=== PATIENT | male | born 1995 | race Caucasian/White ===

== ENCOUNTER 2019-10-28 08:49 | Inpatient (IN) ==
[2019-10-28 09:38] LABS: Appearance Urine Cloudy (Clear); Blood Urine 3+ (Negative); Color Urine Red; Glucose Urine UA Negative (Negative); Ketones Urine 2+ (Negative); Leukocyte Esterase Urine Negative (Negative); Nitrite Urine Positive (Negative); Protein Urine 3+ (Negative); Specific Gravity Urine >= 1.030 (1.000-1.030); Urobilinogen Urine Negative (Negative)
[2019-10-28 09:41] LABS: Bilirubin Urine Negative (Negative); Ictotest Urine Negative (Negative)
[2019-10-28 09:47] LABS: RBC Urine >30 /hpf (0-4); WBC Urine >30 /hpf (0-5)
[2019-10-28 09:48] LABS: Bacteria Urine 1+ (Negative); Mucus Urine Present (None Prsent)
[2019-10-28 09:53] LABS: Basophils # (auto) 0.03 K/uL (0-0.2); Basophils % (auto) 0.5 %; Eosinophils # (auto) 0.02 K/uL (0-0.5); Eosinophils % (auto) 0.3 %; Hematocrit (blood only) 44.4 % (42-52); Hemoglobin 15.5 g/dL (14.0-18.0); Immature Granulocytes # (auto) 0.01 K/uL (0.00-0.02); Immature Granulocytes % (auto) 0.2 %; Lymphocytes # (auto) 0.88 K/uL (1.2-3.4); Lymphocytes % (auto) 14.9 %; Mean Corpuscular Hgb Conc 34.9 g/dL (32-36); Mean Corpuscular Volume 85.9 fL (80-100); Monocytes # (auto) 0.51 K/uL (0.11-0.59); Monocytes % (auto) 8.7 %; Neutrophils # (auto) 4.44 K/uL (1.4-6.5); Neutrophils % (auto) 75.4 %; Platelet Count 172 K/uL (130-400); RDW Coefficient of Variation 12.6 % (11.5-14.5); RDW Standard Deviation 39.7 fL (36.4-46.3); Red Blood Count 5.17 M/uL (4.7-6.1); White Blood Count 5.89 K/uL (4.8-10.8)
[2019-10-28] MEDS ORDERED: SODIUM CHLORIDE 0.9% 1000ML 1,000 ML IV ONE (09:55)
[2019-10-28 10:09] LABS: Est GFR (African American) 107.5; Est GFR (Non-African American) 92.7; Potassium 3.7 mmol/L (3.5-5.1)
[2019-10-28 10:10] LABS: Albumin Level 4.6 gm/dl (3.4-5.0); BUN Creatinine Ratio 16.9 (10-20); Calcium 9.7 mg/dl (8.5-10.1); Creatinine Clr Calc Pharmacy 103.5 ml/min
[2019-10-28 10:12] LABS: Albumin Globulin Ratio 1.3 (0.9-2); Globulin 3.6 gm/dl (2.5-4.0); Total Protein 8.2 gm/dl (6.4-8.2)
--- NOTE | 2019-10-28 10:19 | Emergency Department Note ---
History of Present Illness General Chief Complaint: Abdominal Pain Source: patient Mode of arrival: ambulatory Limitations: no limitations History of Present Illness Provider Complaint: abdominal pain and other (hematuria, "I'm constipated and dehydrated") Onset (ago): 1 day(s) Pain Consistency: intermittent Location: diffuse Radiation: bilateral flank ("sometimes") Severity: mild Maximum Pain Intensity: 3 Current Pain Intensity: 3 Quality: + aching and + dull Relieved By: + nothing Exacerbated By: + nothing Associated Symptoms: + nausea, + diarrhea and + constipation Treatments prior to arrival: none This 23-year-old male patient presents emergency department today via ambulance with complaints of "I feel constipated and dehydrated and there is blood in my urine". The patient reports he is also feeling very anxious, but this is chronic and he states "I am not suicidal". The patient states last evening, he was having difficulty sleeping due to the abdominal pain. He does feel that his anxiety has been flaring up due to his final exams being this week. The patient states he was seen at [facility] and had a CT scan which showed a large stone in his left kidney, but no ureteral stone. The patient states since that time, he has been having intermittent hematuria which is only light pink in color. He states he did follow with urology in [place] and was placed on trimethoprim, but forgot to take his dose yesterday, and noticed heavy hematuria this morning upon awakening. The patient states "I felt like I was going to " and when asked to explain why, he states it was because of the blood in his urine. The patient also reports diffuse abdominal pain which is been ongoing for several months. He states the pain is really unchanged and describes it as a soreness. He feels that he is constipated, but states he has diarrhea every day for several months. He states he does not describe a bowel movement as diarrhea, so feels that because he has not had a solid bowel movement in several months that he is extremely constipated. The patient has been eating and drinking normally. He denies any fever, chills, body aches, or new or worsening flank pain, but states the abdominal pain does occasionally radiate around to the flank. He states this morning, he was dizzy, lightheaded, and felt that he may pass out, but this has improved. The patient reports a history of generalized anxiety and has had many of his symptoms for several months. 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 Beliefs That Will Affect Care: None Current Living Situation: Alone Other Information That Helps Us Care for You: No Feels Safe at Home: Yes Safety Concerns: Feels Safe At This Time Smoking Status: Never smoker Do You Dip or Chew Tobacco: No ; Second Hand Exposure: No ; Tobacco Cessation Education Requested by Patient: No Hx Alcohol Use: Yes Alcohol Intake Frequency: Rarely Hx Substance Use: Yes substance use type: marijuana Substance Use Type Other:: vapes THC regularly Last Used Substance: Unknown Review of Systems A total of 10 systems reviewed and were otherwise negative Physical Exam Vital Signs: Vital Signs - 24 hr 10/28/19 08:49 10/28/19 09:21 10/28/19 10:42 Temperature 36.9 C 37.3 C Temperature Source Oral Oral Pulse Rate 95 H 102 H Pulse Rate [Finger ] 102 H Pulse Rhythm Regular Respiratory Rate 20 17 19 Respiratory Effort / Characteristics Non-Labored Sponta neous Non-Labored Sponta neous Respiratory Depth Normal Normal Normal Respiratory Patter n Regular Regular Blood Pressure 140/84 122/88 Blood Pressure [Ri ght Arm] 150/93 H Blood Pressure Elyssa n 102 99 Blood Pressure Elyssa n [Right Arm] 112 Blood Pressure Pos ition Lying Pulse Oximetry 97 100 97 Oxygen Delivery Me thod Room Air Room Air Room Air Sepsis Recent Feve r Within 48 Hours No No Sepsis New/Unexpla ined Change in Men nancy Status No No Sepsis Action Take n by Nursing No Action Required No Action Required Physical Exam: VITALS: Vitals are noted on the nurse's note and reviewed by myself. Vital signs stable. GENERAL: This is a 23-year-old white male, in no acute distress, nondiaphoretic, well-developed well-nourished. SKIN: The skin was without rashes, erythema, edema, or bruising. There is no tenting of the skin. Capillary refill less than 2 seconds. HEAD: Normocephalic atraumatic. EARS: External auditory canals clear, tympanic membranes pearly moreno without erythema or effusion bilaterally. EYES: Pupils equal round and reactive to light and accommodation. Conjunctivae without injection, sclerae without icterus. Extraocular movements intact. NOSE: Patent, turbinates without inflammation or discharge. No sinus tenderness. MOUTH: Mucous membranes moist. Tonsils are not enlarged. Pharynx without erythema or exudate. Uvula midline. Airway patent. Tongue does not deviate. NECK: Supple without nuchal rigidity. No lymphadenopathy. HEART: Regular rate and rhythm without murmurs gallops or rubs. LUNGS: Clear to auscultation bilaterally without wheezes, rales or rhonchi. No retractions or accessory muscle use. ABDOMEN: Positive bowel sounds x 4. Normal tympanic percussion. Abdomen diffusely tender. Otherwise, soft, without masses or organomegaly. Krishnamurthy sign negative. No guarding or rebound tenderness. No CVA tenderness bilaterally. MUSCULOSKELETAL: No muscle atrophy, erythema, or edema noted. Full range of motion without joint tenderness in all extremities. No tenderness to palpation. Normal gait. Strength 5/5 throughout. NEURO: Patient was alert and oriented to person place and time. No focal neurological deficits. Course The patient was seen and evaluated as above. IV access obtained, labs drawn. Patient medicated with IV fluids. Imaging performed and reviewed by myself and radiologist as above. Labs reviewed by myself. I discussed the case with my attending physician. I discussed the findings with the patient at bedside. I consulted with the [facility]'s urology group in [place], [place]. Discussed the case with BRITANY Falcon with [facility] with [facility]. Patient medicated with IV Rocephin. I discussed recommendations with the patient at bedside. He was agreeable to admission I discussed the case with Lashaun Rm PA-C with [facility]. She did agree to see and evaluate the patient, but requested that I speak with local urology. Discussed the case with BRITANY Gasca with [facility]. I discussed recommendations with Lashaun Rm PA-C. Please see hospitalist dictation regarding ongoing management care of this patient. Consultations Consultation #1: BRITANY Falcon - She advised of a recent CAT scan which wa s performed and reviewed with the patient last week. She indicated that they are currently working up the patient with a CT urogram for evaluation of the urinary collecting system distention noted on the right. She states at that time, there was a 5 mm stone noted in the left kidney. I asked if they would like us to discharge the patient on antibiotics with outpatient follow-up back in [place] or admit the patient here for treatment of the infected stone and possible intervention if needed. She advised that the patient should be admitted here for work-up regarding the stone, but they are happy to assist with any follow-up needs. She was given the fax number and states she will fax the recent office visit report to the emergency department. Consultation #2: BRITANY Joauqin -discussed imaging and work-up performed here in the ED. She was agreeable with admission to the medicine team. Advises that unless the patient becomes febrile or symptoms acutely worsen that he should be made n.p.o. after midnight, as they may consider int ervention or stenting tomorrow, but hopefully, patient will pass stone on his own. Administered Medications Sodium Chloride (Nss 1000ml) 1,000 mls @ 125 mls/hr IV .Q8H DEE Stop: 11/27/19 13:50 Last Admin: 10/28/19 14:37 Dose: 125 mls/hr Documented by: [id number] Discontinued Medications Sodium Chloride (Nss 1000ml) 1,000 mls @ 999 mls/hr IV .Q1H1M ONE Stop: 10/28/19 10:55 Last Infusion: 10/28/19 10:57 Dose: 0 mls/hr Documented by: [id number] Admin: 10/28/19 10:00 Dose: 999 mls/hr Documented by: [id number] Ceftriaxone Sodium (Rocephin) 1,000 mg in 50 mls @ 100 mls/hr IV NOW STA Stop: 10/28/19 12:09 Last Infusion: 10/28/19 12:31 Dose: 0 mls/hr Documented by: [id number] Admin: 10/28/19 12:00 Dose: 100 mls/hr Documented by: [id number] Medical Decision Making Differential Diagnosis + peptic ulcer disease, + biliary pathology, + UTI, + obstruction, + mesenteric ischemia, + aortic pathology, + infections, + inflammatory bowel disease, + renal colic, + torsion (male), + epididymitis (male), + abdominal pain, + appendicitis, + calculus of kidney, + constipation, + diverticulitis, + endometriosis, + gastroenteritis, + pancreatitis and + small bowel obstruction Home Medications Current Medication List: was personally reviewed by me Laboratory Data Attestation: I reviewed the patient's lab results. No leukocytosis, anemia, thrombocytopenia. Renal, hepatic function, and electrolytes without significant abnormality. Lipase 153. Urinalysis positive for nitrates, bacteria, white blood cells. Coags normal. Result diagrams: 10/28/19 09:40 10/28/19 09:40 Lab Results 10/28/19 10/28/19 10/28/19 Range/Units 08:51 09:40 09:40 WBC 5.89 (4.8-10.8) K/uL RBC 5.17 (4.7-6.1) M/uL Hgb 15.5 (14.0-18.0) g/dL Hct 44.4 (42-52) % MCV 85.9 (80-100) fL MCH 30.0 (25-34) pg MCHC 34.9 (32-36) g/dL RDW Std Deviation 39.7 (36.4-46.3) fL RDW Coeff of Colin 12.6 (11.5-14.5) % Plt Count 172 (130-400) K/uL MPV 12.0 H (7.4-10.4) fL Immature Gran % (Auto) 0.2 % Neut % (Auto) 75.4 % Lymph % (Auto) 14.9 % Laurens % (Auto) 8.7 % Eos % (Auto) 0.3 % Baso % (Auto) 0.5 % Immature Gran # (Auto) 0.01 (0.00-0.02) K/uL Neut # (Auto) 4.44 (1.4-6.5) K/uL Lymph # (Auto) 0.88 L (1.2-3.4) K/uL Laurens # (Auto) 0.51 (0.11-0.59) K/uL Eos # (Auto) 0.02 (0-0.5) K/uL Baso # (Auto) 0.03 (0-0.2) K/uL PT (9.0-12.0) Seconds INR (0.9-1.1) APTT (21.0-31.0) Seconds PTT Ratio Sodium 138 (136-145) mmol/L Potassium 3.7 (3.5-5.1) mmol/L Chloride 106 (98-107) mmol/L Carbon Dioxide 27 (21-32) mmol/L Anion Gap 5.0 (3-11) BUN 19 H (7-18) mg/dl Creatinine 1.12 (0.6-1.4) mg/dl Est Cr Clr Drug Dosing 103.5 ml/min Est GFR ( Amer) 107.5 Est GFR (Non-Af Amer) 92.7 BUN/Creatinine Ratio 16.9 (10-20) Glucose 102 H (70-99) mg/dl Calcium 9.7 (8.5-10.1) mg/dl Total Bilirubin 1.0 (0.2-1) mg/dl AST 13 L (15-37) U/L ALT 17 (12-78) U/L Alkaline Phosphatase 59 (45-117) U/L Total Protein 8.2 (6.4-8.2) gm/dl Albumin 4.6 (3.4-5.0) gm/dl Globulin 3.6 (2.5-4.0) gm/dl Albumin/Globulin Ratio 1.3 (0.9-2) Lipase 153 (73-393) U/L Urine Color Red Urine Appearance Cloudy A (Clear) Urine pH 5.0 (4.5-7.5) Ur Specific [place] >= 1.030 (1.000-1.030) Urine Protein 3+ H (Negative) Urine Glucose (UA) Negative (Negative) Urine Ketones 2+ H (Negative) Urine Blood 3+ H (Negative) Urine Nitrite Positive A (Negative) Urine Bilirubin Negative (Negative) Urine Urobilinogen Negative (Negative) Ur Leukocyte Esterase Negative (Negative) Urine RBC >30 H (0-4) /hpf Urine WBC >30 H (0-5) /hpf Ur Epithelial Cells 5-10 H (0-5) /lpf Urine Bacteria 1+ H (Negative) Urine Mucus Present A (None Prsent) 10/28/19 Range/Units 09:40 WBC (4.8-10.8) K/uL RBC (4.7-6.1) M/uL Hgb (14.0-18.0) g/dL Hct (42-52) % MCV (80-100) fL MCH (25-34) pg MCHC (32-36) g/dL RDW Std Deviation (36.4-46.3) fL RDW Coeff of Colin (11.5-14.5) % Plt Count (130-400) K/uL MPV (7.4-10.4) fL Immature Gran % (Auto) % Neut % (Auto) % Lymph % (Auto) % Laurens % (Auto) % Eos % (Auto) % Baso % (Auto) % Immature Gran # (Auto) (0.00-0.02) K/uL Neut # (Auto) (1.4-6.5) K/uL Lymph # (Auto) (1.2-3.4) K/uL Laurens # (Auto) (0.11-0.59) K/uL Eos # (Auto) (0-0.5) K/uL Baso # (Auto) (0-0.2) K/uL PT 11.4 (9.0-12.0) Seconds INR 1.1 (0.9-1.1) APTT 24.1 (21.0-31.0) Seconds PTT Ratio 0.9 Sodium (136-145) mmol/L Potassium (3.5-5.1) mmol/L Chloride (98-107) mmol/L Carbon Dioxide (21-32) mmol/L Anion Gap (3-11) BUN (7-18) mg/dl Creatinine (0.6-1.4) mg/dl Est Cr Clr Drug Dosing ml/min Est GFR ( Amer) Est GFR (Non-Af Amer) BUN/Creatinine Ratio (10-20) Glucose (70-99) mg/dl Calcium (8.5-10.1) mg/dl Total Bilirubin (0.2-1) mg/dl AST (15-37) U/L ALT (12-78) U/L Alkaline Phosphatase (45-117) U/L Total Protein (6.4-8.2) gm/dl Albumin (3.4-5.0) gm/dl Globulin (2.5-4.0) gm/dl Albumin/Globulin Ratio (0.9-2) Lipase (73-393) U/L Urine Color Urine Appearance (Clear) Urine pH (4.5-7.5) Ur Specific [place] (1.000-1.030) Urine Protein (Negative) Urine Glucose (UA) (Negative) Urine Ketones (Negative) Urine Blood (Negative) Urine Nitrite (Negative) Urine Bilirubin (Negative) Urine Urobilinogen (Negative) Ur Leukocyte Esterase (Negative) Urine RBC (0-4) /hpf Urine WBC (0-5) /hpf Ur Epithelial Cells (0-5) /lpf Urine Bacteria (Negative) Urine Mucus (None Prsent) Imaging Data Radiologist's Impression: CT abd pelvis wo con CLINICAL HISTORY: 23 years-old Male presenting with flank pain, hematuria, suprapubic pain. TECHNIQUE: Multidetector CT of the abdomen and pelvis was performed without the use of intravenous contrast. IV contrast: None. One or more dose lowering techniques were used consistent with the principles of ALARA (as low as reasonably achievable), including automatic exposure control, mA or kV adjustment to individual patient size, and/or use of iterative reconstruction. COMPARISON: None. CT DOSE (mGy.cm): The estimated cumulative dose is 266.01 mGy.cm. FINDINGS: Dry Room Attendant topogram: Unremarkable. Lung bases: Normal heart size. No pericardial or pleural effusion. No focal infiltrate or nodule at the lung bases. Liver: Normal morphology. Normal density. Biliary: No gross biliary ductal dilatation allowing for noncontrast technique. Normal gallbladder. Pancreas: Normal noncontrast appearance. Spleen: Normal noncontrast appearance. Adrenal glands: Normal noncontrast appearance. Kidneys and ureters: Minimal pelvocaliectasis of the right kidney with mild urothelial thickening and mild distention of the right ureter. No radiodense obstructing calculus is evident. The right ureter is distended to the level of the ureterovesical junction. Calyceal diverticulum versus cyst at the upper pole the right kidney. No left hydronephrosis, however, the left ureter is mildly distended. Calcification in the region of the distal left ureter is concerning for a ureteral calculus. This measures 4 mm. Bladder: Circumferential bladder wall thickening. Pelvic organs: Normal noncontrast appearance. Bowel: Normal appendix. No bowel obstruction. Peritoneal cavity: No free fluid or intraperitoneal gas. Lymph nodes: No gross lymphadenopathy allowing for noncontrast technique. Vasculature: Normal noncontrast appearance. Abdominal wall: Normal. Musculoskeletal: Normal. IMPRESSION: 1. Suspected nonobstructing or partially obstructing 4 mm distal left ureteral calculus. Alternatively, this could represent an adjacent phlebolith. No additional renal or ureteral calculus is evident. Follow-up radiographs may be useful to evaluate for possible passage of this calcification, which could further suggest a ureteral calculus. 2. Mildly distended left ureter. 3. Mildly distended right urinary collecting system without an obstructing calculus evident. 4. Correlate with urinalysis to exclude underlying cystitis with upper tract infection. ACT 112: Negative or not required by law. Electronically signed by: Jose Azar M.D. 10/28/2019 10:44 AM Blood Pressure Blood Pressure Findings: Elevated blood pressure Blood Pressure Disposition: elevated BP felt to be situational MDM Narrative This 23-year-old male patient presents emergency department today for evaluation of hematuria and abdominal pain. Gross hematuria did seem to acutely worsen overnight. The patient is currently being worked up as an outpatient by urology in [place], [place] for a distended right urinary collecting system without obvious obstruction. There was note of a 5 mm left renal calculus approximately [address] scan[address] There is now evidence of a 4 mm distal left ureteral calculus noted on CT imaging here. Urinalysis does appear infected with positive nitrites, bacteria, and white blood cells. The patient is afebrile. There is no leukocytosis. I did speak with his urologist in [place] who recommended admission to the local facility here for management of the infected stone at this time and they will follow-up as an outpatient. The patient is extremely concerned that he is constipated, despite having several month long history of diarrhea. The CT of the abdomen does not show any evidence of constipation or obstruction at this time. The patient will be admitted to the hospitalist service with urology consult. Please see hospitalist and urology dictation regarding ongoing management care of this patient. The chart was completed utilizing Eligible voice recognition software. Grammatical errors, random word insertions, pronoun errors, and incomplete sentences are an occasional consequence of this system due to software limitations, ambient noise, and hardware issues. Any formal questions or concerns about the content, text, or information contained within the body of this dictation should be directly addressed to the provider for clarification. Impression & Plan Left ureteral calculus, Complicated UTI (urinary tract infection) Discharge Plan Visit Data *Final* Discharge Date/Time: 10/28/19 13:14 Chief Complaint: Abdominal Pain ED Provider: Antonio Alejo ED Midlevel Provider: Piedad Dowell Discharge Problem: Left ureteral calculus, Complicated UTI (urinary tract infection) Patient Disposition: Admitted As Inpatient Condition: Good Discharge Instructions Interventions: ED Discharge Assessment Last Done: 10/28/19 13:14
[2019-10-28 10:30] LABS: INR 1.1 (0.9-1.1); Partial Thromboplastin Ratio 0.9; Partial Thromboplastin Time 24.1 Seconds (21.0-31.0); Prothrombin Time 11.4 Seconds (9.0-12.0)
--- NOTE | 2019-10-28 10:45 | CT Scan Report ---
CT abd pelvis wo con CLINICAL HISTORY: 23 years-old Male presenting with flank pain, hematuria, suprapubic pain. TECHNIQUE: Multidetector CT of the abdomen and pelvis was performed without the use of intravenous co ntrast. IV contrast: None. One or more dose lowering techniques were used consistent with the princip les of ALARA (as low as reasonably achievable), including automatic exposure control, mA or kV adjust ment to individual patient size, and/or use of iterative reconstruction. COMPARISON: None. CT DOSE (mGy.cm): The estimated cumulative dose is 266.01 mGy.cm. FINDINGS: Pitch Worker topogram: Unremarkable. Lung bases: Normal heart size. No pericardial or pleural effusion. No focal infiltrate or nodule at t he lung bases. Liver: Normal morphology. Normal density. Biliary: No gross biliary ductal dilatation allowing for noncontrast technique. Normal gallbladder. Pancreas: Normal noncontrast appearance. Spleen: Normal noncontrast appearance. Adrenal glands: Normal noncontrast appearance. Kidneys and ureters: Minimal pelvocaliectasis of the right kidney with mild urothelial thickening and mild distention of the right ureter. No radiodense obstructing calculus is evident. The right ureter is distended to the level of the ureterovesical junction. Calyceal diverticulum versus cyst at the u pper pole the right kidney. No left hydronephrosis, however, the left ureter is mildly distended. Kaz cification in the region of the distal left ureter is concerning for a ureteral calculus. This measur es 4 mm. Bladder: Circumferential bladder wall thickening. Pelvic organs: Normal noncontrast appearance. Bowel: Normal appendix. No bowel obstruction. Peritoneal cavity: No free fluid or intraperitoneal gas. Lymph nodes: No gross lymphadenopathy allowing for noncontrast technique. Vasculature: Normal noncontrast appearance. Abdominal wall: Normal. Musculoskeletal: Normal. IMPRESSION: 1. Suspected nonobstructing or partially obstructing 4 mm distal left ureteral calculus. Alternative ly, this could represent an adjacent phlebolith. No additional renal or ureteral calculus is evident. Follow-up radiographs may be useful to evaluate for possible passage of this calcification, which co uld further suggest a ureteral calculus. 2. Mildly distended left ureter. 3. Mildly distended right urinary collecting system without an obstructing calculus evident. 4. Correlate with urinalysis to exclude underlying cystitis with upper tract infection. ACT 112: Negative or not required by law. Electronically signed by: Jose Azar M.D. 10/28/2019 10:44 AM
[2019-10-28] MEDS ORDERED: cefTRIAXone SODIUM 1,000 MG/50 ML BAG IV STA (11:40)
--- NOTE | 2019-10-28 12:34 | History & Physical Report ---
Date of Service October 28, 2019 Assessment & Plan (1) Left ureteral calculus: (2) Complicated UTI (urinary tract infection): This is a 23 yo M with a PMH of kidney stones, bipolar disorder, anxiety, marijuana use and other medical problems listed below who presents with increased gross hematuria starting yesterday and was found to have left ureteral stone and complicated UTI. -Presents with increased hematuria, chills, known kidney stone. Has been following with BRITANY Mccray of urology group in [facility] ([phone]) -Afebrile, no leukocytosis or electrolyte abnormalities. CT abdomen pelvis with suspected nonobstructing or partially obstructing 4 mm distal left ureteral calculus. Alternatively, this could represent an adjacent phlebolith. No additional renal or ureteral calculus is evident -UA abnormal. Started on Rocephin empirically. Follow urine culture -IV fluids, strain urine. Routine urology consult placed, who recommend n.p.o. after midnight (3) Diarrhea: Endorses persistent diarrhea for the past 6 months, in the setting of laxative use -Will order C. difficile due to recent chills, but likely 2/2 ongoing laxative use -Recommend follow-up with PCP for bowel issues (4) Bipolar affective disorder: Not currently on medication. Mood stable. Follows with psychologist in [place] (5) Marijuana use: Vapes THC regularly. Counseled in cessation due to ongoing GI issues DVT Ppx: Early ambulation Code status: FULL PCP: [facility] in [place] Dispo: Admitted to med/surg. Plan to return home once medically stable. Patient seen in collaboration with Dr. Dominguez. Please see addendum. History of Present Illness Chief Complaint: Hematuria Primary Care Provider: Aleksandar Cordova MD This is a 23 yo M with a PMH of kidney stones, bipolar disorder, anxiety, marijuana use and other medical problems listed below who presents with increased gross hematuria starting yesterday. Has history of kidney stones and has been able to pass them all. Endorses passing 5 to 6 stones this past fall. Started following with urology in [place] back in September for left-sided stone and was started on trimethoprim last week. Was having small amounts of hematuria but it increased significantly as of yesterday when he was "peeing all blood". Endorses some left-sided lower quadrant abdominal pain but attributes that to constipation for which he is been using intermittent laxatives. States he is had diarrhea for months. Endorses chills and anxiety, which is chronic. Follows with psychologist in [facility]. Also vapes THC marijuana regularly. Denies any fever, lightheadedness, visual changes, chest pain, palpitations, shortness of breath, nausea, vomiting, abdominal pain, dysuria or constipation. Does not take any home meds regularly. Follows with BRITANY Mccray in [facility]. Allergies Allergy/AdvReac Type Severity Reaction Status Date / Time No Known Allergies Allergy Unverified 10/28/19 09:26 Home Medications Home Medications Medication Instructions Recorded Confirmed Type trimethoprim 100 mg PO BID 10/28/19 10/28/19 History Past Med/Surg History Medical History Bipolar affective disorder Generalized anxiety disorder History of kidney stones (Chronic) Marijuana use Surgical History [place] teeth removed Family History Other Family history non-contributory Social History Preferred Language: Vietnamese Communication Ability: Effective End Lathe Operator Required: No Beliefs That Will Affect Care: None Current Living Situation: Alone Other Information That Helps Us Care for You: No Feels Safe at Home: Yes Safety Concerns: Feels Safe At This Time Smoking Status: Never smoker Do You Dip or Chew Tobacco: No ; Second Hand Exposure: No ; Tobacco Cessation Education Requested by Patient: No Hx Alcohol Use: Yes Alcohol Intake Frequency: Rarely Hx Substance Use: Yes substance use type: marijuana Substance Use Type Other:: vapes THC regularly Last Used Substance: Unknown Review of Systems Review of Systems: At least ten systems reviewed and negative except as noted in the HPI. Physical Exam Physical Exam: General Appearance: WD/WN, vitals as above, NAD, sitting up in bed, pleasant, conversing easily Head: normocephalic, atraumatic Eyes: normal inspection, PERRL, conjunctivae normal, anicteric sclerae ENT: external ear and nose normal, oropharynx normal Neck: trachea midline, no thyromegaly normal visual inspection Respiratory: lungs clear to auscultation, no wheeze, rales, rhonchi. Normal insp/exp effort, no accessory muscle use Cardiovascular: regular rate, rhythm, no murmur, normal peripheral pulses. Vessels: no JVD or carotid bruit Chest: normal inspection of chest Abdomen/GI: normal bowel sounds, soft, nontender, no hepatosplenomegaly : +CVA tenderness Extremities/Musculoskelatal: no cyanosis or clubbing, extremities motor strength 5/5 Neurologic: PERRL, EOMI, accommodation nl, no face palsy, no dysarthria CN's II-XI intact bilaterally and moves all extremities Psychiatric: A+Ox3, anxious Skin: no rashes, normal color, warm/dry Results & Data Vital Signs (Past 12 Hours) Vital Signs Temp Pulse Pulse Resp BP BP Pulse Ox 10/28/19 10:42 102 H 19 150/93 H 97 10/28/19 09:21 37.3 C 102 H 17 122/88 100 10/28/19 08:49 36.9 C 95 H 20 140/84 97 Laboratory Results Short CBC 10/28/19 Range/Units 09:40 WBC 5.89 (4.8-10.8) K/uL Hgb 15.5 (14.0-18.0) g/dL Hct 44.4 (42-52) % Plt Count 172 (130-400) K/uL BMP 10/28/19 09:40 Sodium 138 Potassium 3.7 Chloride 106 Carbon Dioxide 27 BUN 19 H Creatinine 1.12 Glucose 102 H Calcium 9.7 Liver Function 10/28/19 Range/Units 09:40 Total Bilirubin 1.0 (0.2-1) mg/dl AST 13 L (15-37) U/L ALT 17 (12-78) U/L Alkaline Phosphatase 59 (45-117) U/L Albumin 4.6 (3.4-5.0) gm/dl Urine 10/28/19 Range/Units 08:51 Urine Color Red Urine Appearance Cloudy A (Clear) Urine pH 5.0 (4.5-7.5) Ur Specific [place] >= 1.030 (1.000-1.030) Urine Protein 3+ H (Negative) Urine Glucose (UA) Negative (Negative) Diagnostic Findings CT abd/pelvis: IMPRESSION: 1. Suspected nonobstructing or partially obstructing 4 mm distal left ureteral calculus. Alternatively, this could represent an adjacent phlebolith. No additional renal or ureteral calculus is evident. Follow-up radiographs may be useful to evaluate for possible passage of this calcification, which could further suggest a ureteral calculus. 2. Mildly distended left ureter. 3. Mildly distended right urinary collecting system without an obstructing calculus evident. 4. Correlate with urinalysis to exclude underlying cystitis with upper tract infection. Supervising Physician Co-Signing Physician Notes Pt was seen and examined. Agreed with Lashaun MENDEZ exam, assessment and plan. 23 yo M with a PMH of kidney stones, bipolar disorder, anxiety, marijuana use who presents to [facility] ER with increased gross hematuria and tenderness. Pt said that he has been having recurrent Kidney stone in the past few months that required no surgical intervention. CT abd/pelvis done today showed suspected nonobstructing or partially obstructing 4 mm distal left ureteral calculus. Currently pain is controlled. UA showed positive nitrite, blood, WBC and bacteria. Received IV Rocephin in the ER. Will follow urine cx. Urology consult. Will continue IVF for now. Will get an an xray in morning. Will make NPO after midnight if requires surgical intervention by urology. Continue monitor closely. MD Angelica
[2019-10-28] MEDS ORDERED: ACETAMINOPHEN 325 MG TAB PO PRN (13:51)
[2019-10-28] MEDS: SODIUM CHLORIDE 0.9% 1000ML 1,000 ML IV SCH ×2 (14:37→22:21)
[2019-10-28] MEDS ORDERED: LORazepam 0.5 MG TAB PO STA (23:27)
[2019-10-29] MEDS: SODIUM CHLORIDE 0.9% 1000ML 1,000 ML IV SCH ×2 (06:19→14:25)
[2019-10-29 06:35] LABS: Hematocrit (blood only) 40.7 % (42-52); Hemoglobin 13.8 g/dL (14.0-18.0); Mean Corpuscular Hemoglobin 29.9 pg (25-34); Mean Corpuscular Hgb Conc 33.9 g/dL (32-36); Mean Corpuscular Volume 88.1 fL (80-100); Mean Platelet Volume 12.4 fL (7.4-10.4); Platelet Count 161 K/uL (130-400); RDW Coefficient of Variation 12.9 % (11.5-14.5); RDW Standard Deviation 41.2 fL (36.4-46.3); Red Blood Count 4.62 M/uL (4.7-6.1); White Blood Count 5.82 K/uL (4.8-10.8)
[2019-10-29 07:03] LABS: Calcium 8.9 mg/dl (8.5-10.1); Creatinine Clr Calc Pharmacy 110.4 ml/min; Est GFR (African American) 116.2; Est GFR (Non-African American) 100.3; Potassium 4.1 mmol/L (3.5-5.1)
--- NOTE | 2019-10-29 07:39 | Urology Consultation ---
Date of Consultation October 29, 2019 Assessment & Plan (1) Left ureteral calculus: 23yo M with 4mm distal left ureteral stone, possible UTI, psychiatric issues. Afebrile, nontoxic appearing. UA appears more inflammatory than infections - awaiting UC&S. Continue broad spectrum abx while awaiting sensitivities. Discussed treatment options for stone management. He is currently asymptomatic. He wishes to attempt spontaneous passage and understands ER criteria for fever, intractable pain or vomiting. Awaiting psychiatry evaluation per primary team. Will provide diet. OKay to discharge from our perspective with flomax, antibiotics x 7-10days for possible complicated UTI, and pain control. Please also provide imaging discs and reports, as well as urine strainer for discharge. Thank you for allowing us to participate in the acute care of Mr. Hernandez. Please reconsult us with additional questions, concerns or changes in patient status. History of Present Illness Attending Physician: Reji Diaz MD History of Present Illness 23yo M from [facility] in [facility] visiting a friend with PMHx of kidney stones, bipolar disorder, anxiety, marijuana use and other medical issues listed below who presents with increased gross hematuria starting yesterday. Hx spontaneous passage of all stones in the past, follows with Urologist back home. CT imaging reveals 4mm left distal stone with mild hydro. Mildly distended right urinary collecting system without an obstructing calculus UA nitrite positive, large WBCs, RBCs - likely inflammatory. VSS stable Cr 1.05 Pt resting comfortably in bed on examination this AM. Denies dysuria, suprapubic pain. Acknowledges gross hematuria, beginning to lighten with each void. States his pain is controlled, last dose of medication last evening. Nursing notes reviewed in regards to statements about mental health concerns noted. Allergies Allergy/AdvReac Type Severity Reaction Status Date / Time No Known Allergies Allergy Unverified 10/28/19 09:26 Home Medications Home Medications Medication Instructions Recorded Confirmed Type trimethoprim 100 mg PO BID 10/28/19 10/28/19 History Patient History Medical History Bipolar affective disorder Generalized anxiety disorder History of kidney stones (Chronic) Marijuana use Surgical History [place] teeth removed Family History Other Family history non-contributory Social History Preferred Language: Salvadorean Communication Ability: Effective Measurement Psychologist Required: No Beliefs That Will Affect Care: None Current Living Situation: Alone Other Information That Helps Us Care for You: No Feels Safe at Home: Yes Safety Concerns: Feels Safe At This Time Smoking Status: Never smoker Do You Dip or Chew Tobacco: No ; Second Hand Exposure: No ; Tobacco Cessation Education Requested by Patient: No Hx Alcohol Use: Yes Alcohol Intake Frequency: Rarely Hx Substance Use: Yes substance use type: marijuana Substance Use Type Other:: vapes THC regularly Last Used Substance: Unknown Review of Systems Review of Systems: All systems reviewed & are unremarkable except as noted in HPI & below Physical Exam Constitutional: no acute distress and not ill appearing Eyes: no nystagmus ENMT: Ears: no hearing impairment Neck: trachea midline Respiratory: no respiratory distress and no cough Cardiovascular: Vessels: no JVD Chest (Breasts): Chest: normal inspection of chest Gastrointestinal (Abdomen): Inspection/Auscultation: abdomen not distended and no abdominal edema Percussion/Palpation: abdomen soft; abdomen nontender Musculoskeletal: Head/Neck/Chest: normocephalic and head atraumatic Skin: no rashes, warm and dry Neurologic: awake; not confused and not obtunded Psychiatric: Orientation: alert and oriented x 3 Eye Contact: good eye contact Affect: no depressed affect Genitourinary: bladder normal to inspection; no CVA tenderness Lymphatic: no lymphadenopathy and no lymphedema Results & Data Vital Signs (Past 12 Hours) Vital Signs Temp Pulse Resp BP Pulse Ox 10/28/19 23:07 36.8 C 78 18 134/83 98 PG Care Time/CCT Total # of Minutes Spent Total Time Spent with Patient: Total time spent is greater than 50% in coordination of care (as documented) at patient's floor/unit and/or counseling patient:
[2019-10-29 07:58] VITALS: BP 123/78; PULSE 95; TEMP 98.1; O2SAT 100
--- NOTE | 2019-10-29 08:27 | XRay Report ---
KUB HISTORY: left kidney stone COMPARISON: Abdomen and pelvis CT 10/18/1919. FINDINGS: The bowel gas pattern is unremarkable. There are no dilated loops of small bowel to suggest an obstruction. 5 mm calcification within the left deep pelvis remains unchanged. This favors a dis nancy left ureteral stone. No renal calculi identified. No pneumoperitoneum or pneumatosis. IMPRESSION: No change in the 5 mm calcification within the left deep pelvis which favors a distal left ureteral s tone. ACT 112: Negative or not required by law. Electronically signed by: Nakul Zepeda M.D. 10/29/2019 8:25 AM
[2019-10-29] MEDS ORDERED: cefTRIAXone SODIUM 1,000 MG in DEXTROSE 5% 50 ML IV SCH (09:00)
--- NOTE | 2019-10-29 14:24 | Hospitalist Progress Note ---
Date of Service October 29, 2019 Assessment & Plan (1) Left ureteral calculus: (2) Complicated UTI (urinary tract infection): Patient is a 23 yr male with H/O kidney stones, bipolar disorder, anxiety, marijuana use and other medical problems listed below who presents with increased gross hematuria starting yesterday and was found to have left ureteral stone and possible complicated UTI. Left ureteral calculus R/O UTI --CT ABD:Suspected nonobstructing or partially obstructing 4 mm distal left ureteral calculus. Alternatively, this could represent an adjacent phlebolith. No additional renal or ureteral calculus is evident. Follow-up radiographs may be useful to evaluate for possible passage of this calcification, which could further suggest a ureteral calculus. Mildly distended left ureter. Mildly distended right urinary collecting system without an obstructing calculus eviden t. Correlate with urinalysis to exclude underlying cystitis with upper tract infection. --KUB:No change in the 5 mm calcification within the left deep pelvis which favors a distal left ureteral stone. --Follows with Mahendra GARG of urology group in [facility] ([phone]) --Urine Cx:pin point growth --Empirically on Rocephin --Patient was recently started on trimethoprim 100 mg BID as outpatient --Continue IV fluids --Appreciate urology input --Patient preferred conservative management for ureteral calculus --Needs to follow-up with urology as outpatient (3) Diarrhea: Endorses persistent diarrhea for the past 6 months, in the setting of laxative use Stool for C. difficile:Not performed due to formed stool Diarrhea likely due to ongoing laxative use Hold Laxatives Monitor (4) Bipolar affective disorder: Not currently on medication. Follows with psychologist in [place] Psychiatry consulted (5) Marijuana use: Vapes THC regularly. Counseled to quit DVT Px: ambulate Code status: FULL [place]CP: [facility] [place] Dispo: Plan to return home once medically stable. Subjective Patient is seen and examined at bedside Reports hematuria, left groin discomfort Denies any significant left flank pain Also denies any chest pain, shortness of breath, dizziness, nausea, dysuria Admits to having depression but denies any suicidal/homicidal thoughts Offers no other complaints Review of Systems Review of Systems: All systems reviewed & are unremarkable except as noted in HPI & below Physical Exam Physical Exam: Physical Exam: Vitals signs as noted above General Appearance:Moderately built and nourished, no apparent distress Head: normocephalic, Atraumatic Eyes: normal inspection, EOMI Neck: supple, Trachea midline Respiratory/Chest: Normal breath sounds, CTA Cardiovascular: S1, S2, No murmur Abdomen/GI:Soft, Non tender, Bowel sounds present, Mild left flank tender Extremities/Musculoskelatal:normal inspection, no edema Neurologic/Psych:AAOX3, grossly no focal neurological deficits Skin: normal color, warm Results & Data Vital Signs (Past 12 Hours) Vital Signs Temp Pulse Resp BP Pulse Ox 10/29/19 07:55 36.7 C 95 H 16 123/78 100 Laboratory Results Short CBC 10/29/19 Range/Units 05:40 WBC 5.82 (4.8-10.8) K/uL Hgb 13.8 L (14.0-18.0) g/dL Hct 40.7 L (42-52) % Plt Count 161 (130-400) K/uL BMP 10/29/19 05:40 Sodium 141 Potassium 4.1 Chloride 111 H Carbon Dioxide 27 BUN 16 Creatinine 1.05 Glucose 85 Calcium 8.9
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
--- NOTE | 2019-10-29 15:13 | Discharge Summary ---
Date of Service October 29, 2019 Admission HPI Per Admitting Provider This is a 23 yo M with a PMH of kidney stones, bipolar disorder, anxiety, marijuana use and other medical problems listed below who presents with increased gross hematuria starting yesterday. Has history of kidney stones and has been able to pass them all. Endorses passing 5 to 6 stones this past fall. Started following with urology in [place] back in September for left-sided stone and was started on trimethoprim last week. Was having small amounts of hematuria but it increased significantly as of yesterday when he was "peeing all blood". Endorses some left-sided lower quadrant abdominal pain but attributes that to constipation for which he is been using intermittent laxatives. States he is had diarrhea for months. Endorses chills and anxiety, which is chronic. Follows with psychologist in [facility]. Also vapes THC marijuana regularly. Denies any fever, lightheadedness, visual changes, chest pain, palpitations, shortness of breath, nausea, vomiting, abdominal pain, dysuria or constipation. Does not take any home meds regularly. Follows with BRITANY Mccray in [facility]. Admission Exam Per Admitting Provider General Appearance: WD/WN, vitals as above, NAD, sitting up in bed, pleasant, conversing easily Head: normocephalic, atraumatic Eyes: normal inspection, PERRL, conjunctivae normal, anicteric sclerae ENT: external ear and nose normal, oropharynx normal Neck: trachea midline, no thyromegaly normal visual inspection Respiratory: lungs clear to auscultation, no wheeze, rales, rhonchi. Normal insp/exp effort, no accessory muscle use Cardiovascular: regular rate, rhythm, no murmur, normal peripheral pulses. Vessels: no JVD or carotid bruit Chest: normal inspection of chest Abdomen/GI: normal bowel sounds, soft, nontender, no hepatosplenomegaly : +CVA tenderness Extremities/Musculoskelatal: no cyanosis or clubbing, extremities motor strength 5/5 Neurologic: PERRL, EOMI, accommodation nl, no face palsy, no dysarthria CN's II-XI intact bilaterally and moves all extremities Psychiatric: A+Ox3, anxious Skin: no rashes, normal color, warm/dry Principal Diagnosis Left ureteral calculus Possible UTI Bipolar disorder Discharge Data Allergies Allergy/AdvReac Type Severity Reaction Status Date / Time No Known Allergies Allergy Unverified 10/28/19 09:26 Consultations 10/28/19 12:19 ED Decision to Admit Stat 10/28/19 13:51 Consult Urology Routine 10/29/19 07:41 Consult Psychiatry Routine 10/29/19 11:45 Consult Health Information Management Routine 10/29/19 11:50 Burn CD for patient Routine Procedures Performed Operation Date: 10/29/19 12:20 <No data on this case meets the specified criteria> --CT ABD:Suspected nonobstructing or partially obstructing 4 mm distal left ureteral calculus. Alternatively, this could represent an adjacent phlebolith. No additional renal or ureteral calculus is evident. Follow-up radiographs may be useful to evaluate for possible passage of this calcification, which could further suggest a ureteral calculus. Mildly distended left ureter. Mildly distended right urinary collecting system without an obstructing calculus evident. Correlate with urinalysis to exclude underlying cystitis with upper tract infection. --KUB:No change in the 5 mm calcification within the left deep pelvis which favors a distal left ureteral stone. Ordered Studies 10/28/19 09:58 CT abd pelvis wo con Stat Hospital Course (1) Left ureteral calculus: (2) Complicated UTI (urinary tract infection): Patient is a 23 yr male with H/O kidney stones, bipolar disorder, anxiety, marijuana use and other medical problems listed below who presents with increased gross hematuria starting yesterday and was found to have left ureteral stone and possible complicated UTI. Left ureteral calculus R/O UTI --CT ABD:Suspected nonobstructing or partially obstructing 4 mm distal left ureteral calculus. Alternatively, this could represent an adjacent phlebolith. No additional renal or ureteral calculus is evident. Follow-up radiographs may be useful to evaluate for possible passage of this calcification, which could further suggest a ureteral calculus. Mildly distended left ureter. Mildly distended right urinary collecting system without an obstructing calculus evident. Correlate with urinalysis to exclude underlying cystitis with upper tr act infection. --KUB:No change in the 5 mm calcification within the left deep pelvis which favors a distal left ureteral stone. --Follows with Mahendra GARG of urology group in [facility] ([phone]) --Urine Cx:pin point growth --Empirically on Rocephin --Patient was recently started on trimethoprim 100 mg BID as outpatient --Continue IV fluids --Appreciate urology input --Patient preferred conservative management for ureteral calculus --Needs to follow-up with urology as outpatient (3) Diarrhea: Endorses persistent diarrhea for the past 6 months, in the setting of laxative use Stool for C. difficile:Not performed due to formed stool Diarrhea likely due to ongoing laxative use Hold Laxatives Monitor (4) Bipolar affective disorder: Not currently on medication. Follows with psychologist in [place] Psychiatry consulted (5) Marijuana use: Vapes THC regularly. Counseled to quit DVT Px: ambulate Code status: FULL [place] [facility] [place] Dispo: Plan to return home once medically stable. Total Time Total Time Spent Total Time Spent (In Minutes): 38 minutes Total Time Includes: Examination of the Patient, Discharge Planning, Medication Reconciliation, Communication With Other Providers and Other Discharge Plan Discharge Items Patient Disposition: Home - Self-Care Reason For Visit: INFECTED URETERAL STONE Discharge Diagnosis: Left ureteral calculus Possible UTI Bipolar disorder Condition on Discharge: Good Activity: Per Instructions section Exercise/Sports: Gradually increase as tolerated Non-emergency contact: Primary Care Provider and Urologist Call non-emergency contact if: you have any medication questions, your symptoms worsen, your pain is not controlled, your pain is worsening, your pain is unusual for you, your pain is concerning for you and you have a fever Follow-up/Referrals: Aleksandar Cordova MD [Primary Care Provider] - Diet: Regular Addtl Attending Provider Instructions: Follow-up with your primary care physician in 1 week as advised Follow up with your Urologist Mahendra GARG in 1 week Follow up with your Psychiatrist as advised Complete the antibiotic course as prescribed Your Urine Culture is pending at the time of discharge. Follow up with your Physician for results and further adjustment of your antibiotics if needed Seek immediate medical attention if your symptoms reoccur or worsen Pending Studies at Discharge: Yes Studies:: Urine Culture Stand-Alone Forms: My [employer], Smoking Cessation Medications and DC Order Prescriptions: New ciprofloxacin HCl 250 mg tablet 250 mg PO BID Qty: 12 RF: 0 Continued trimethoprim 100 mg tablet 100 mg PO BID RF: 0 Discharge Orders: Discharge Order (Routine); Ordered 10/29/19 Ordered By: Rjei Jacome/Other Patient Handouts: Kidney Stones Admission Data Admit Date/Time: 10/28/19 12:29 Attending Provider: Reji Diaz Admit Provider: George Dominguez Primary Care Provider: Aleksandar Cordova Other Providers: Hayden Lemos ; Kaleb Sandoval ; Black Mckeon Other Interventions: Discharge Summary Assessment (RN) Last Done: 10/29/19 16:36 DC Date/Time DO NOT enter until pt leaves facility: 10/29/19 16:56
== END 2019-10-29 16:56 | disposition home or self-care (01) | DRG 694 ==
LOC: ED 08:49 → SUATTDRO 12:29 → 3W 12:29 → 3N 13:14